=== PATIENT | male | born 1960 | race Caucasian/White ===

== ENCOUNTER 2020-09-07 21:46 | Outpatient (CLI) | payer OTHER | END 2020-09-07 21:47 | disposition home or self-care (01) | LOC: COV 21:46 | PROVIDERS: ATTEND Family Medicine | DX: U07.1 COVID-19 (principal) ==

== ENCOUNTER 2021-06-21 13:28 | Outpatient (CLI) | payer OTHER | END 2021-06-21 13:29 | disposition home or self-care (01) | LOC: COV 13:28 | PROVIDERS: ATTEND Internal Medicine Gastroenterology | DX: Z01.812 Encounter for preprocedural laboratory examination (principal); Z86.010 Personal history of colon polyps; Z20.822 Contact with and (suspected) exposure to COVID-19 ==